=== PATIENT | male | born 1960 | race African-American/Black ===

== ENCOUNTER 2023-04-11 20:10 | Inpatient (IN) | payer OTHER ==
[2023-04-11 21:07] VITALS: BMI 18.6
[2023-04-11] MEDS ORDERED: LIDOCAINE PATCH REMOVAL MC SCH (22:00)
[2023-04-11] MEDS ORDERED: BENZONATATE 200 MG CAPSULE PO PRN (22:02)
[2023-04-11] MEDS ORDERED: IBUPROFEN 400 MG TABLET (FP) PO PRN (22:02)
[2023-04-11] MEDS ORDERED: METHOCARBAMOL 500 MG TABLET PO PRN (22:02)
[2023-04-11] MEDS ORDERED: P-EPHED 60MG/TRIPROLIDI 2.5MG TABLET PO PRN (22:02)
[2023-04-11] MEDS ORDERED: hydrOXYzine PAMOATE 25 MG CAPSULE (FP) PO PRN (22:02)
[2023-04-11] MEDS ORDERED: LOPERAMIDE HCL 2 MG CAPSULE PO PRN (22:02)
[2023-04-11] MEDS ORDERED: guaiFENesin 600 MG TABLET.ER (FP) PO PRN (22:02)
[2023-04-11] MEDS ORDERED: DICYCLOMINE HCL 10 MG CAPSULE PO PRN (22:02)
[2023-04-11] MEDS ORDERED: MAG HYDROX/AL HYDROX/SIMETH 30 ML UNIT-DOSE CUP PO PRN (22:02)
[2023-04-11] MEDS ORDERED: POLYETHYLENE GLYCOL (HEALTHYLAX) 3350 17 GM PACKET PO PRN (22:02)
[2023-04-11] MEDS ORDERED: NICOTINE POLACRILEX 2 MG GUM BUC PRN (22:02)
[2023-04-11] MEDS ORDERED: MAGNESIUM HYDROX 2400MG/30ML ORAL SUSPENSION 30 ML CUP PO PRN (22:02)
[2023-04-11] MEDS ORDERED: ONDANSETRON *ODT* 4 MG TABLET SL PRN (22:02)
[2023-04-11] MEDS ORDERED: BENZOCAINE/MENTHOL (CHLORASEPTIC ) LOZENGE MM PRN (22:02)
[2023-04-11] MEDS ORDERED: BISMUTH SUBSALICYLATE 524 MG/30 ML PO PRN (22:02)
[2023-04-11] MEDS ORDERED: diazePAM 5 MG TABLET PO PRN (22:05)
[2023-04-11] MEDS: IBUPROFEN 600 MG TABLET (FP) PO PRN (23:10)
[2023-04-11] MEDS: diazePAM 5 MG TABLET PO SCH (23:14)
[2023-04-11] MEDS: CEPHALEXIN MONOHYDRATE 500 MG CAPSULE (UD) PO SCH (23:21)
[2023-04-12] MEDS: CEPHALEXIN MONOHYDRATE 500 MG CAPSULE (UD) PO SCH ×3 (05:54→17:06)
[2023-04-12] MEDS: diazePAM 5 MG TABLET PO SCH ×4 (05:54→22:22)
[2023-04-12] MEDS: ACETAMINOPHEN 325 MG TABLET (FP) PO PRN ×3 (05:55→22:23)
[2023-04-12] MEDS ORDERED: LIDOCAINE 5% TOPICAL PATCH TP SCH (10:00)
[2023-04-12] MEDS: PRENATAL VITAMINS W/ FOLIC ACID TABLET (FP) PO SCH (10:47)
[2023-04-12] MEDS: LIDOCAINE 4% PATCH TP SCH (10:52)
[2023-04-12 11:01] LABS: HEMOGLOBIN 12.7 GM/dL (11.7-16.9); MCH 34.1 pg (25.7-33.7); MCHC 34.2 g/dl (32.0-35.9); MEAN CELL VOLUME 99.6 fl (80-96); MEAN PLT VOLUME 8.2 fl (7.5-11.1); PLATELET COUNT 237 10^3/uL (134-434); RBC 3.72 M/mm3 (4.00-5.60); RDW 14.5 % (11.9-15.9)
[2023-04-12 11:04] LABS: CHLORIDE 102 mmol/L (98-107); POTASSIUM 3.7 mmol/L (3.5-5.1); SODIUM 138 mmol/L (136-145)
[2023-04-12 11:24] LABS: CALCIUM 9.5 mg/dL (8.5-10.1)
[2023-04-12 11:25] LABS: ALBUMIN 3.3 g/dl (3.4-5.0); ANION GAP 6 mmol/L (4-13); BLOOD UREA NITROGEN 11.3 mg/dL (7-18); CO2 29 mmol/L (21-32); GLUCOSE,RANDOM 104 mg/dL (74-106)
[2023-04-12 11:28] LABS: CREATININE 0.9 mg/dL (0.55-1.3); SGOT/AST 28 U/L (15-37); SGPT/ALT 20 U/L (13-61)
[2023-04-12 11:29] LABS: TOT PROT 6.9 g/dl (6.4-8.2)
[2023-04-12 11:30] LABS: ALK PHOS 80 U/L (45-117); BILIRUBIN,TOTAL 2.3 mg/dL (0.2-1)
[2023-04-12] MEDS ORDERED: MELATONIN 5 MG TABLETS PO SCH (22:00)
[2023-04-12] MEDS ORDERED: SUVOREXANT 10 MG TABLET PO PRN (22:00)
[2023-04-12] MEDS: LIDOCAINE PATCH REMOVAL MC SCH (22:22)
[2023-04-12] MEDS: THIAMINE HCL 100 MG TABLET (FP) PO SCH (22:22)
[2023-04-13] MEDS: CEPHALEXIN MONOHYDRATE 500 MG CAPSULE (UD) PO SCH ×5 (00:31→23:04)
[2023-04-13] MEDS: ACETAMINOPHEN 325 MG TABLET (FP) PO PRN ×2 (06:17→17:49)
[2023-04-13] MEDS: diazePAM 5 MG TABLET PO SCH ×2 (06:17→17:49)
[2023-04-13] MEDS: LIDOCAINE 4% PATCH TP SCH (10:16)
[2023-04-13] MEDS: PRENATAL VITAMINS W/ FOLIC ACID TABLET (FP) PO SCH (10:20)
[2023-04-13] MEDS: THIAMINE HCL 100 MG TABLET (FP) PO SCH (22:24)
[2023-04-13] MEDS: LIDOCAINE PATCH REMOVAL MC SCH (22:25)
[2023-04-14] MEDS: IBUPROFEN 600 MG TABLET (FP) PO PRN ×2 (05:28→10:27)
[2023-04-14] MEDS: CEPHALEXIN MONOHYDRATE 500 MG CAPSULE (UD) PO SCH ×2 (05:29→12:25)
[2023-04-14] MEDS ORDERED: diazePAM 5 MG TABLET PO ONE (06:00)
[2023-04-14 10:01] VITALS: RESP 17
[2023-04-14] MEDS: LIDOCAINE 4% PATCH TP SCH (10:24)
[2023-04-14] MEDS: PRENATAL VITAMINS W/ FOLIC ACID TABLET (FP) PO SCH (10:26)
[2023-04-14 12:58] VITALS: BP 127/88; PULSE 87; TEMP 97.5
== END 2023-04-14 03:40 | disposition home or self-care (01) | DRG 775 ==
LOC: YASAS 20:10 → Y6N 22:09
PROVIDERS: ADMIT Allergy & Immunology; ATTEND Surgery
PROC: HZ2ZZZZ Detoxification Services for Substance Abuse Treatment (ICD-10-PCS; principal; 2023-04-11)
DX: F10.230 Alcohol dependence with withdrawal, uncomplicated (principal); F12.20 Cannabis dependence, uncomplicated; F17.210 Nicotine dependence, cigarettes, uncomplicated; F10.282 Alcohol dependence with alcohol-induced sleep disorder; B02.29 Other postherpetic nervous system involvement; N39.0 Urinary tract infection, site not specified; Z62.810 Personal history of physical and sexual abuse in childhood; Z86.19 Personal history of other infectious and parasitic diseases; Z59.02 Unsheltered homelessness
CPT/HCPCS: 36415; 80053; 80307; 85027; 86593; 86780; 87635